=== PATIENT | female | born 1950 | race Caucasian/White ===

== ENCOUNTER 2016-10-20 17:17 | Inpatient (IN) | payer OTHER ==
[2016-10-20] MEDS ORDERED: ASPIRIN 81 MG CHEWABLE TABLETS PO ONE (17:28)
--- NOTE | 2016-10-20 17:29 | PDOC ---
History of Present Illness - General History Source: Patient Exam Limitations: No Limitations <Roddy Rivera - Last Filed: 10/20/16 19:26> <Joaquin Nolasco - Last Filed: 10/20/16 19:41> - General Chief Complaint: Chest Pain Stated Complaint: CHEST PAIN Time Seen by Provider: 10/20/16 17:25 - History of Present Illness Initial Comments: 10/20/16 19:25 The patient is a 66 year old female with a significant past medical history of MVR (St. Judes valve),lupe on dig and coumadin, tachy-rosalind syndrome s/p PM, vitiligo, "twisted colon", thromboembolic disease, constipation hernia repair, rectal bleeding, osteopenia, CHF, parathyroid disease who presents to the ED with chest pain after lunch. Patient complains the pain is burining in nature and radites up to her jaw. Pt felt mildly sob when this occured because she ' felt anxious' denie any diaphoresis, n/v, recent exertional sypmtoms. She denies any alleviating or worsening factors. Pt denies any obstructive cornary disease. She denies SOB, palpitations, tingling/weakness, back pain, fever/chills, cough , leg swelling. . She denies nausea, vomiting, diarrhea, constipation. (Roddy Rivera) Past History <Roddy Rivera - Last Filed: 10/20/16 19:26> - Past Medical History Cardiac Disorders: Yes (PACEMAKER, MITRAL VALVEN REPLACEMENT) Other medical history: SPLENIC INFARCTION - Surgical History Cardiac Surgery: Yes (PACEMAKER, MITRAL VALVE REPLACEMENT) Cholecystectomy: Yes - Psycho/Social/Smoking Cessation Hx Anxiety: No Suicidal Ideation: No Smoking History: Never smoked Have you smoked in the past 12 months: No Hx Alcohol Use: No Drug/Substance Use Hx: No Substance Use Type: None Hx Substance Use Treatment: No <Joaquin Nolasco - Last Filed: 10/20/16 19:41> - Past Medical History Allergies/Adverse Reactions: Allergies Allergy/AdvReac Type Severity Reaction Status Date / Time carvedilol [From Coreg] Allergy Verified 10/20/16 17:18 Home Medications: Ambulatory Orders Losartan Potassium [Cozaar] 25 mg PO DAILY 10/16/15 Metoprolol Succinate [Toprol Xl] 50 mg PO DAILY 10/16/15 Warfarin Sodium [Coumadin] 7.5 mg PO ASDIR 10/16/15 Aspirin Coated [Ecotrin -] 81 mg PO DAILY tablet.ec 10/17/15 Digoxin [Lanoxin -] 0.25 mg PO DAILY@2200 10/20/16 Docusate Sodium [Colace -] 100 mg PO DAILY PRN 10/20/16 Warfarin Sodium [Coumadin] 5 mg PO ASDIR 10/20/16 Review of Systems - Review of Systems Able to Perform ROS?: Yes <Roddy Rivera - Last Filed: 10/20/16 19:26> <Joaquin Nolasco - Last Filed: 10/20/16 19:41> - Review of Systems Comments:: 10/20/16 19:25 CONSTITUTIONAL: No reported: Fever, Chills, Diaphoresis, Generalized Weakness, Malaise, Loss of Appetite HEENT: No reported: Rhinorrhea, Nasal Congestion, Throat Pain, Throat Swelling, Difficulty Swallowing, Mouth Swelling, Ear Pain, Eye Pain, Visual Changes CARDIOVASCULAR: + chest pain. No reported: Syncope, Palpitations, Irregular Heart Rate, Lightheadedness, Peripheral Edema RESPIRATORY: No reported: Cough, Shortness of Breath, SOB with Exertion, Orthopnea, Wheezing , Stridor, Hemoptysis GASTROINTESTINAL: No reported: Abdominal pain, Abdominal Distension, Nausea, Vomiting, Diarrhea, Constipation, Melena, Hematochezia GENITOURINARY: No reported: Dysuria, Frequency, Urgency, Hesitancy, Flank Pain, Genital Pain MUSCULOSKELETAL: No reported: Myalgia, Arthralgia, Joint Swelling, Back pain, Neck Pain SKIN: No reported: Rash, Itching, Pallor HEMEATOLOGIC/IMMUNOLOGIC: No reported: Easy Bleeding, Easy Bruising, Lymphadenopathy, Frequent infections ENDOCRINE: No reported: Unexplained Weight Gain, Unexplained Weight Loss, Heat Intolerance , Cold Intolerance NEUROLOGIC: No reported: Headache, Focal Weakness, Paresthesias, Vertigo, Lightheadedness, Unsteady Gait, Seizure, Mental Status Changes, Incontinence PSYCHIATRIC: No reported: Anxiety, Depression (Roddy Rivera) *Physical Exam <Roddy Rivera - Last Filed: 10/20/16 19:26> <Joaquin Nolasco - Last Filed: 10/20/16 19:41> - Vital Signs Last Vital Signs Temp Pulse Resp BP Pulse Ox 97.7 F 76 21 126/74 98 10/20/16 17:18 10/20/16 17:43 10/20/16 17:43 10/20/16 17:43 10/20/16 17:43 - Physical Exam Comments: 10/20/16 19:25 GENERAL: The patient is awake, alert, and fully oriented, Nontoxic - in no acute distress. HEAD: Normocephalic, atraumatic. EYES: extraocular movements intact, sclera anicteric, conjunctiva clear. ENT: Normal voice, Moist mucous membranes. NECK: Normal range of motion, supple LUNGS: Breath sounds equal, clear to auscultation bilaterally. No wheezes, no rhonchi, no rales. HEART: Regular rate and rhythm, without murmur, rub or gallop. PM in chest ABDOMEN: Soft, nontender, normoactive bowel sounds. No guarding, no rebound.No CVA tenderness EXTREMITIES: Normal range of motion, no edema. No clubbing or cyanosis. No cords, erythema, or tenderness. NEUROLOGICAL: No facial assymetry, Normal speech, PSYCH: Normal mood, normal affect. SKIN: Warm, Dry, normal turgor. (Roddy Rivera) Heart Score/ECG Review <Roddy Rivera - Last Filed: 10/20/16 19:26> - History History: Moderately suspicious - Electrocardiogram EKG: Non specific repolarization disturbance - Age Age: >/= 65 - Risk Factors Based on the list above the patient has:: No risk factors known - Troponin Troponin: </= normal limit - Score Heart Score - Total: 4 <Joaquin Nolasco - Last Filed: 10/20/16 19:41> - ECG Impressions Comment:: 10/20/16 19:22 Twelve-lead EKG was performed and reviewed by me. Wide complex QURS nonspecific block no ST changes suggstive of acute ischemia repeat EKG at 19:09 shows ventricular pacing no ekg suggestive of acute ischemia va darnell criteria (Joaquin Nolasco) ED Treatment Course - LABORATORY CBC & Chemistry Diagram: 10/20/16 17:36 10/20/16 17:36 <Roddy Rviera - Last Filed: 10/20/16 19:26> - LABORATORY CBC & Chemistry Diagram: 10/20/16 17:36 10/20/16 17:36 <Joaquin Nolasco - Last Filed: 10/20/16 19:41> - ADDITIONAL ORDERS Additional order review: Laboratory Results 10/20/16 10/20/16 10/20/16 17:36 17:36 17:31 INR 1.99 H D Sodium 137 Potassium 3.6 Chloride 102 Carbon Dioxide 26 Anion Gap 9 BUN 19 H D Creatinine 1.0 D Creat Clearance w eGFR 55.14 Random Glucose 111 H D Calcium 9.9 Magnesium 2.1 Total Bilirubin 1.0 AST 22 D ALT 19 D Alkaline Phosphatase 67 D Creatine Kinase Cancelled 62 Troponin I Cancelled 0.10 Total Protein 6.9 Albumin 4.5 10/20/16 17:36 RBC 4.50 MCV 87.7 MCHC 34.3 RDW 13.5 MPV 8.1 Neutrophils % 58.9 Lymphocytes % 25.6 Monocytes % 9.3 Eosinophils % 4.6 H D Basophils % 1.6 - RADIOLOGY Radiology Studies Ordered: Category Date Time Status CHEST X-RAY PORTABLE* [RAD] Stat Radiology 10/20/16 17:35 Taken - Medications Given in the ED: ED Medications Discontinued Medications Generic Name Dose Route Start Last Admin Trade Name Freq PRN Reason Stop Dose Admin Aspirin 162 mg 10/20/16 17:28 10/20/16 17:36 Asa - PO 10/20/16 17:29 162 mg ONCE ONE Administration Medical Decision Making <Roddy Rivera - Last Filed: 10/20/16 19:26> <Joaquin Nolasco - Last Filed: 10/20/16 19:41> - Medical Decision Making 10/20/16 19:[address] De Oliveira (Logistics Lead) (Roddy Rivera) 10/20/16 19:09 66y F hx of mvr, afib on dig and coumadin, s/p pm, chf, presents with burning chest pain radiating to the jaw. on exam pt appears well in no acute distress. no exertional symptoms, exam unremarkable vitals normal suspect pt has gastritis vs pancreatitis consider ACS however her sypmtoms are highly atypical will obtain blood work will give pepcid/maalox, asa will reasesss will dw dr. De Oliveira 10/20/16 19:33 pt feeling improved discussed with dr. de oliveira recommended observation in tele will admit to hospitalist service A portion of this note was documented by scribe services under my direction. I have reviewed the details of the note, within reason, and agree with the documentation with the following case summary and management plan written by me 10/20/16 19:41 case dw [facility] with observation Case discussed in detail with admitting physician including history, physical exam and ancillary studies. Admitting physician has assumed care for the patient, will follow all pending diagnostics and will complete the evaluation and treatment. (Joaquin Nolasco) *DC/Admit/Observation/Transfer <Roddy Rivera - Last Filed: 10/20/16 19:26> - Discharge Dispostion Admit: Yes <Joaquin Nolasco - Last Filed: 10/20/16 19:41> Diagnosis at time of Disposition: Chest pain Qualifiers: Chest pain type: unspecified Qualified Code(s): R07.9 - Chest pain, unspecified - Discharge Dispostion Condition at time of disposition: Guarded - Attestations Scribe Attestion: 10/20/16 19:26 Documentation prepared by Roddy Rivera, acting as medical doctor for Joaquin Nolasco MD, . (Roddy Rivera)
[2016-10-20] MEDS ORDERED: ASPIRIN 81 MG CHEWABLE TABLETS ONE (17:32)
[2016-10-20 17:47] LABS: BASOPHIL 1.6 % (0-2.0); EOSINOPHIL 4.6 % (0-4.5); MCH 30.1 pg (25.7-33.7); MCHC 34.3 g/dl (32.0-36.0); MEAN CELL VOLUME 87.7 fl (80-96); MEAN PLT VOLUME 8.1 fl (7.5-11.1); NEUTROPHILS 58.9 % (42.8-82.8); PLATELET COUNT 176 K/MM3 (134-434); RDW 13.5 % (11.6-15.6); WHITE BLOOD COUNT 5.5 K/mm3 (4.0-10.8)
[2016-10-20 17:55] LABS: INR 1.99 (0.82-1.09)
[2016-10-20 18:00] LABS: ALBUMIN 4.5 g/dl (3.5-5.0); ALK PHOS 67 U/L (32-92); ANION GAP 9 (8-16); CALCIUM 9.9 mg/dl (8.4-10.2); CO2 26 mmol/L (22-28); GLUCOSE,RANDOM 111 mg/dl (74-106); MAGNESIUM 2.1 mg/dL (1.8-2.4); SGOT/AST 22 U/L (10-42); SGPT/ALT 19 U/L (10-40); TOT PROT 6.9 g/dl (6.4-8.3)
[2016-10-20 18:10] LABS: TROPONIN I (DFP) 0.1 ng/ml (0.03-0.50)
[2016-10-20 21:10] VITALS: BMI 23.1
--- NOTE | 2016-10-20 21:55 | HP ---
CHIEF COMPLAINT: Chest Pain PCP: Dr Juarez HISTORY OF PRESENT ILLNESS: This is a 66 y/o with significant medical history of Mitral Valve Repair (St Judes Valve), Afib (on Digoxin, Coumadin), Tachy-Emory Syndrome, s/p PM, CHF, Vitiligo, "twisted colon", Thromboembolic Disease, Splenic Infarction, Parathyroid Constipation, Rectal bleeding, Hernia Repair. Who presents to the ED with midsternal chest pressure/pain radiating to her jaw x 1400. Patient reports the pain as constant radiating across her chest. Patient reports diaphoresis, with nausea starting since arrival to the hospital. Patient denies fever, chills, cough, SOB, dizziness, palpations, AP, V/D, constipation, dysuria. Patient reports her last Echo 2016- LVEF 45% ER course was notable for: (1) Cardiac Enzymes neg x1 (2) EKG PM, inferior infarct, age undetermined, anterolateral infarct, age undetermined (3) Chest Xray image- no Infiltrate no effusion, report pending Recent Travel: None PAST MEDICAL HISTORY: See HPI PAST SURGICAL HISTORY: See HPI Social History: Smoking: Former 45 yrs ago Alcohol: None Drugs: Marijuana use - 70's (teenager) Lives alone, independent, not working Family History: Father Allergies carvedilol [From Coreg] Allergy (Verified 10/20/16 17:18) HOME MEDICATIONS: Home Medications Medication Instructions Recorded Losartan Potassium [Cozaar] 25 mg PO DAILY 10/16/15 Metoprolol Succinate [Toprol Xl] 50 mg PO DAILY 10/16/15 Warfarin Sodium [Coumadin] 7.5 mg PO ASDIR 10/16/15 Aspirin Coated [Ecotrin -] 81 mg PO DAILY tablet.ec 10/17/15 Digoxin [Lanoxin -] 0.25 mg PO DAILY@2200 10/20/16 Docusate Sodium [Colace -] 100 mg PO DAILY PRN 10/20/16 Warfarin Sodium [Coumadin] 5 mg PO ASDIR 10/20/16 REVIEW OF SYSTEMS CONSTITUTIONAL: diaphoresis, generalized weakness Absent: fever, chills, generalized weakness, malaise, loss of appetite, weight change HEENT: Absent: rhinorrhea, nasal congestion, throat pain, throat swelling, difficulty swallowing, mouth swelling, ear pain, eye pain, visual changes CARDIOVASCULAR: chest pain Absent: syncope, palpitations, irregular heart rate, lightheadedness, peripheral edema RESPIRATORY: Absent: cough, shortness of breath, dyspnea with exertion, orthopnea, wheezing, stridor, hemoptysis GASTROINTESTINAL: nausea Absent: abdominal pain, abdominal distension, vomiting, diarrhea, constipation, melena, hematochezia GENITOURINARY: Absent: dysuria, frequency, urgency, hesitancy, hematuria, flank pain, genital pain MUSCULOSKELETAL: Absent: myalgia, arthralgia, joint swelling, back pain, neck pain SKIN: Absent: rash, itching, pallor HEMATOLOGIC/IMMUNOLOGIC: Absent: easy bleeding, easy bruising, lymphadenopathy, frequent infections ENDOCRINE: Absent: unexplained weight gain, unexplained weight loss, heat intolerance, cold intolerance NEUROLOGIC: headache Absent: focal weakness or paresthesias, dizziness, unsteady gait, seizure, mental status changes, bladder or bowel incontinence PSYCHIATRIC: Absent: anxiety, depression, suicidal or homicidal ideation, hallucinations. PHYSICAL EXAMINATION GENERAL: Awake, alert, and fully oriented, in no acute distress. HEAD: Normal with no signs of trauma. EYES: Pupils equal, round and reactive to light, extraocular movements intact, sclera anicteric, conjunctiva clear. No lid lag. EARS, NOSE, THROAT: Ears normal, nares patent, oropharynx clear without exudates. Moist mucous membranes. NECK: Normal range of motion, supple without lymphadenopathy, JVD, or masses. LUNGS: Breath sounds equal, clear to auscultation bilaterally. No wheezes, and no crackles. No accessory muscle use. HEART: Irregular rate and rhythm, normal S1 and S2 without murmur, rub or gallop. Chest Pain non-reproducible ABDOMEN: Soft, nontender, not distended, normoactive bowel sounds, no guarding, no rebound, no masses. No hepatomegaly or splenomegaly. MUSCULOSKELETAL: Normal range of motion at all joints. No bony deformities or tenderness. No CVA tenderness. UPPER EXTREMITIES: 2+ pulses, warm, well-perfused. No cyanosis. No clubbing. No peripheral edema. LOWER EXTREMITIES: 2+ pulses, warm, well-perfused. No calf tenderness. No peripheral edema. NEUROLOGICAL: Cranial nerves II-XII intact. Normal speech. Normal gait. PSYCHIATRIC: Cooperative. Good eye contact. Appropriate mood and affect. SKIN: Warm, dry, normal turgor, no rashes or lesions noted, normal capillary refill. Laboratory Results - last 24 hr 10/20/16 10/20/16 10/20/16 17:31 17:36 17:36 WBC 5.5 D RBC 4.50 Hgb 13.6 D Hct 39.5 MCV 87.7 MCHC 34.3 RDW 13.5 Plt Count 176 D MPV 8.1 Neutrophils % 58.9 Lymphocytes % 25.6 Monocytes % 9.3 Eosinophils % 4.6 H D Basophils % 1.6 INR 1.99 H D Sodium Potassium Chloride Carbon Dioxide Anion Gap BUN Creatinine Creat Clearance w eGFR Random Glucose Calcium Magnesium Total Bilirubin AST ALT Alkaline Phosphatase Creatine Kinase 62 CK-MB (CK-2) Troponin I 0.10 Total Protein Albumin Lipase Digoxin 10/20/16 10/20/16 17:36 17:53 WBC RBC Hgb Hct MCV MCHC RDW Plt Count MPV Neutrophils % Lymphocytes % Monocytes % Eosinophils % Basophils % INR Sodium 137 Potassium 3.6 Chloride 102 Carbon Dioxide 26 Anion Gap 9 BUN 19 H D Creatinine 1.0 D Creat Clearance w eGFR 55.14 Random Glucose 111 H D Calcium 9.9 Magnesium 2.1 Total Bilirubin 1.0 AST 22 D ALT 19 D Alkaline Phosphatase 67 D Creatine Kinase Cancelled CK-MB (CK-2) Troponin I Cancelled Total Protein 6.9 Albumin 4.5 Lipase 77 H Digoxin 0.2561 L ASSESSMENT/PLAN: This is a 66 y/o female with a PMHx of: Mitral Valve Repair, s/p PM, Afib (on Digoxin, Coumadin), Tachy-Emory Syndrome, CHF, Thromboembolic Disease, Splenic Infarction, "Twisted Colon" Parathyroid, Hernia Repair. Placed in Tele Observation for Chest Pain r/o [place], Sub Therapuetic INR for further evaluation of their emergent condition. Plan: 1. Card: Chest Pain - r/o [place] vs Angina vs Atypical CP - Tele monitoring - HEART Score 4 - BOOKER Score 3 - Serial Enzymes - Appreciate Cardiology Consult - Echo in am - EKG reviewed - Chest xray reviewed - Monitor CBC, BMP - Asa given in ED - Continue home meds, tonight 2. Afib - Continue Digoxin, Warfarin 3. CHF - Stable - Will continue to monitor and treat with interventions, accordingly 4. Sub Therapuetic INR - Will start Coumadin 7.5mg tonight - Continue home meds - Ingram INRs 5. FEN - Tolerates Po Fluids - Replete lytes prn - Low Na Diet 6. DVT Prophylaxis - OOB - SCDs - Continue Coumadin Code Status: Full Code Problem List - Problem (1) Chest pain Code(s): R07.9 - CHEST PAIN, UNSPECIFIED Qualifiers: Chest pain type: unspecified Qualified Code(s): R07.9 - Chest pain, unspecified (2) Subtherapeutic international normalized ratio (INR) Code(s): R79.1 - ABNORMAL COAGULATION PROFILE (3) Splenic infarction Code(s): D73.5 - INFARCTION OF SPLEEN (4) Hx of mitral valve repair Code(s): Z98.890 - OTHER SPECIFIED POSTPROCEDURAL STATES (5) Afib Code(s): I48.91 - UNSPECIFIED ATRIAL FIBRILLATION (6) Status cardiac pacemaker Code(s): Z95.0 - PRESENCE OF CARDIAC PACEMAKER (7) CHF (congestive heart failure) Code(s): I50.9 - HEART FAILURE, UNSPECIFIED (8) DVT prophylaxis Code(s): VOB2579 - Visit type - Emergency Visit Emergency Visit: Yes ED Registration Date: 10/20/16 Care time: The patient presented to the Emergency Department on the above date and was hospitalized for further evaluation of their emergent condition. - New Patient This patient is new to me today: Yes Date on this admission: 10/20/16 - Critical Care Critical Care patient: No
[2016-10-20] MEDS ORDERED: DIGOXIN 0.125 MG TABLET (FP) PO SCH (22:00)
[2016-10-20] MEDS ORDERED: METOPROLOL SUCCINATE 50 MG TAB.SR.24H (FP) PO SCH (22:00)
[2016-10-20] MEDS ORDERED: DOCUSATE SODIUM 100 MG CAPSULE (FP) PO PRN (22:27)
[2016-10-20] MEDS ORDERED: WARFARIN NA 7.5 MG TABLET (FP) PO SCH (23:00)
[2016-10-20] MEDS ORDERED: NITROGLYCERIN SUBLINGUAL 1/150 0.4 MG TAB SL ONE (23:56)
[2016-10-21] MEDS ORDERED: NITROGLYCERIN SUBLINGUAL 1/150 0.4 MG TAB ONE (00:06)
[2016-10-21] MEDS ORDERED: CLOPIDOGREL BISULFATE 300 MG TABLET PO ONE (00:12)
[2016-10-21] MEDS ORDERED: HEPARIN NA (PORCINE) 5,000 UNITS/ML 1ML VIAL IVPUSH PRN ×2 (00:13)
[2016-10-21] MEDS ORDERED: HEPARIN INFUSION - 500 ML IVPB SCH (00:15)
[2016-10-21] MEDS ORDERED: NITROGLYCERIN SUBLINGUAL 1/150 0.4 MG TAB SL ONE (00:30)
--- NOTE | 2016-10-21 01:15 | HOSP ---
Subjective - Review of Symptoms Events since last encounter: Hospitalist Encounter Notified by the primary RN, that the patient's Jelani are elevated and the patient is having chest pain Ordered stat EKG, Plavix, Heparin Protocol, transfer to [facility] to Telemetry Instructed the primary RN to inform Dr. Beckwith of this mornings events. Per RN Dr. Beckwith requests the patient to be transferred to ICU. Will continue to monitor Cardiovascular: Yes: Chest Pain Physical Examination Vital Signs: Vital Signs Temperature 97.9 F 10/21/16 00:19 Pulse Rate 72 10/21/16 00:19 Respiratory Rate 17 10/21/16 00:19 Blood Pressure 126/76 10/21/16 00:19 O2 Sat by Pulse Oximetry (%) 99 10/20/16 22:15 Labs: Troponin, BNP 10/20/16 10/20/16 10/20/16 17:31 17:36 23:15 Troponin I 0.10 Cancelled 10.85 H* CBCD WBC 5.5 K/mm3 (4.0-10.8) D 10/20/16 17:36 RBC 4.50 M/mm3 (3.60-5.2) 10/20/16 17:36 Hgb 13.6 GM/dl (10.7-15.3) D 10/20/16 17:36 Hct 39.5 % (32.4-45.2) 10/20/16 17:36 MCV 87.7 fl (80-96) 10/20/16 17:36 MCHC 34.3 g/dl (32.0-36.0) 10/20/16 17:36 RDW 13.5 % (11.6-15.6) 10/20/16 17:36 Plt Count 176 K/MM3 (134-434) D 10/20/16 17:36 MPV 8.1 fl (7.5-11.1) 10/20/16 17:36 CMP Sodium 137 mmol/L (136-145) 10/20/16 17:36 Potassium 3.6 mmol/L (3.5-5.1) 10/20/16 17:36 Chloride 102 mmol/L (98-107) 10/20/16 17:36 Carbon Dioxide 26 mmol/L (22-28) 10/20/16 17:36 Anion Gap 9 (8-16) 10/20/16 17:36 BUN 19 mg/dl (7-18) H D 10/20/16 17:36 Creatinine 1.0 mg/dl (0.6-1.3) D 10/20/16 17:36 Creat Clearance w eGFR 55.14 (>60) 10/20/16 17:36 Calcium 9.9 mg/dl (8.4-10.2) 10/20/16 17:36 Total Bilirubin 1.0 mg/dl (0.2-1.0) 10/20/16 17:36 AST 22 U/L (10-42) D 10/20/16 17:36 ALT 19 U/L (10-40) D 10/20/16 17:36 Alkaline Phosphatase 67 U/L (32-92) D 10/20/16 17:36 Total Protein 6.9 g/dl (6.4-8.3) 10/20/16 17:36 Albumin 4.5 g/dl (3.5-5.0) 10/20/16 17:36 Current Medications Generic Name Dose Route Start Last Admin Trade Name Delfinoq PRN Reason Stop Dose Admin Aspirin 81 mg 10/21/16 10:00 Ecotrin - PO DAILY MATTEO Digoxin 0.25 mg 10/20/16 22:00 10/20/16 22:54 Lanoxin - PO 0.25 mg DAILY@2200 [facility] Administration Docusate Sodium 100 mg 10/20/16 22:27 Colace - PO DAILY PRN CONSTIPATION Heparin Sodium (Porcine) 1,000 unit 10/21/16 00:13 Heparin - IVPUSH PRN PRN Heparin Heparin Sodium (Porcine) 5,000 unit 10/21/16 00:13 Heparin - IVPUSH PRN PRN Heparin Heparin Sodium/Dextrose 500 mls @ 20 mls/hr 10/21/16 00:15 Heparin Infusion - IVPB TITR [facility] Protocol 1,000 UNITS/HR Losartan Potassium 25 mg 10/21/16 10:00 Cozaar - PO DAILY MATTEO Metoprolol Succinate 50 mg 10/20/16 22:00 10/20/16 22:54 Toprol Xl - PO 50 mg HS MATTEO Administration Critical Care Total Critical Care Time (in minutes): 35 Critical Care Statement: The care of this patient involved high complexity decision making to prevent further life threatening deterioration of the patient 's condition and/or to evalute & treat vital organ system(s) failure or risk of failure.
[2016-10-21] MEDS ORDERED: HEPARIN INFUSION - 500 ML IVPB ONE (04:35)
[2016-10-21] MEDS ORDERED: MAG HYDROX/AL HYDROX/SIMETH 30 ML UNIT-DOSE CUP PO PRN (05:06)
--- NOTE | 2016-10-21 05:30 | CONSULT ---
Consult Consult Specialty:: pulm/ critical care Referred by:: Bijal Donohue Reason for Consultation:: chest pain - History of Present Illness Chief Complaint: chest pain History of Present Illness: 66 y/o woman with significant cardiac history including MVR (St. Judes valve), Afib on digoxin and coumadin, tachy-rosalind syndrome s/p PPM, thromboembolic disease, vitiligo, twisted colon, constipation, rectal bleeding, osteopenia, CHF, parathyroid disease who presented to ED with midsternal chest pain/ pressure radiating to jaw. She noted some mild SOB when this occurred which she attributed to being anxious but denied recent exertional symptoms. She denied palpitations, tingling/ weakness, back pain, fever/ chills, cough, leg swelling , n/v, diarrehea, constipation, dysuria. She did endorse some diaphoresis with nausea which started since arriving to the hospital. Per pt her last TTE was in 2015 with EF 45%. VS in the ED were: T 97.7, HR 87, BP 150/90, RR 18, 02 100%. Initial cardiac enzymes were negative however subsequent trop was 10.8. She was loaded with plavix 300, ASA, given sublingual nitro x 2 and started on heparin gtt. Dr. Beckwith from cardiology was consulted. Pt was transferred to ICU with plan for possible transfer during the day for cardiac cath. Current Medications Al Hydroxide/Mg Hydroxide (Mylanta Oral Suspension -) 30 ml PO Q6H PRN PRN Reason: DYSPEPSIA Aspirin (Ecotrin -) 81 mg PO DAILY [facility] Digoxin (Lanoxin -) 0.25 mg PO DAILY@2200 [facility] Last Admin: 10/20/16 22:54 Dose: 0.25 mg Docusate Sodium (Colace -) 100 mg PO DAILY PRN PRN Reason: CONSTIPATION Heparin Sodium (Porcine) (Heparin -) 1,000 unit IVPUSH PRN PRN PRN Reason: Heparin Heparin Sodium (Porcine) (Heparin -) 5,000 unit IVPUSH PRN PRN PRN Reason: Heparin Heparin Sodium/Dextrose (Heparin Infusion -) 500 mls @ 20 mls/hr IVPB TITR MATTEO ; 1,000 UNITS/HR PRN Reason: Protocol Losartan Potassium (Cozaar -) 25 mg PO DAILY [facility] Metoprolol Succinate (Toprol Xl -) 50 mg PO HS [facility] Last Admin: 10/20/16 22:54 Dose: 50 mg - History Source History Provided By: Patient, Medical Record Limitations to Obtaining History: No Limitations - Past Medical History Cardio/Vascular: Yes: AFIB (chronic), CHF, Mitral Stenosis (MVR x2:1977, 1993 ( St. Flip mechanical mitral prosthesis, [facility]), Other (Sick sinus syndrome (w/ pacmeker, generator change 2005, generator change (Medtronic ) October 2012)) ...LMP Comment: 66 YEAR OLD ...: No Rheumatology: Yes: Other (Raynaud's syndrome) Endocrine: Yes: Hyperparathyroidism, Osteopenia - Past Surgical History Past Surgical History: Yes: Cholecystectomy, Hernia Repair (ventral), Valve Replacement (MVR x2:1977, 1993 (St. Flip mechanical mitral prosthesis, at [facility])) - Alcohol/Substance Use Hx Alcohol Use: No - Smoking History Smoking history: Never smoked Have you smoked in the past 12 months: No Home Medications - Allergies Allergies/Adverse Reactions: Allergies Allergy/AdvReac Type Severity Reaction Status Date / Time carvedilol [From Coreg] Allergy Verified 10/20/16 17:18 - Home Medications Home Medications: Ambulatory Orders Losartan Potassium [Cozaar] 25 mg PO DAILY 10/16/15 Metoprolol Succinate [Toprol Xl] 50 mg PO DAILY 10/16/15 Warfarin Sodium [Coumadin] 7.5 mg PO ASDIR 10/16/15 Aspirin Coated [Ecotrin -] 81 mg PO DAILY tablet.ec 10/17/15 Digoxin [Lanoxin -] 0.25 mg PO DAILY@2200 10/20/16 Docusate Sodium [Colace -] 100 mg PO DAILY PRN 10/20/16 Warfarin Sodium [Coumadin] 5 mg PO ASDIR 10/20/16 Family Disease History - Family Disease History Family Disease History: Other: Father (Hyperlipidemia), Mother (Hyperlipidemia) , Sister (Hyperlipidemia) Review of Systems - Review of Systems Constitutional: denies: Chills, Fever, Lethargy Cardiovascular: reports: Chest Pain. denies: Edema, Palpitations, Shortness of Breath Respiratory: denies: Cough, Exercise Intolerance, SOB, SOB on Exertion Physical Exam Vital Signs: Vital Signs Temperature 98.9 F 10/21/16 03:00 Pulse Rate 72 10/21/16 04:00 Respiratory Rate 17 10/21/16 04:00 Blood Pressure 130/87 10/21/16 04:00 O2 Sat by Pulse Oximetry (%) 99 10/20/16 22:15 Constitutional: Yes: No Distress, Anxious Eyes: Yes: WNL, PERRL HENT: Yes: WNL Neck: Yes: Supple Cardiovascular: Yes: Regular Rate and Rhythm, S1, S2 (subtle mechanical click). No: Murmur Respiratory: Yes: CTA Bilaterally Gastrointestinal: Yes: Normal Bowel Sounds. No: Distention, Tenderness Extremities: Yes: WNL Edema: No Peripheral Pulses WNL: Yes Integumentary: Yes: WNL Neurological: Yes: WNL, Cran Nerves II-XII Intact ...Motor Strength: WNL Labs: CBCD WBC 5.5 K/mm3 (4.0-10.8) D 10/20/16 17:36 RBC 4.50 M/mm3 (3.60-5.2) 10/20/16 17:36 Hgb 13.6 GM/dl (10.7-15.3) D 10/20/16 17:36 Hct 39.5 % (32.4-45.2) 10/20/16 17:36 MCV 87.7 fl (80-96) 10/20/16 17:36 MCHC 34.3 g/dl (32.0-36.0) 10/20/16 17:36 RDW 13.5 % (11.6-15.6) 10/20/16 17:36 Plt Count 176 K/MM3 (134-434) D 10/20/16 17:36 MPV 8.1 fl (7.5-11.1) 10/20/16 17:36 CMP Sodium 137 mmol/L (136-145) 10/20/16 17:36 Potassium 3.6 mmol/L (3.5-5.1) 10/20/16 17:36 Chloride 102 mmol/L (98-107) 10/20/16 17:36 Carbon Dioxide 26 mmol/L (22-28) 10/20/16 17:36 Anion Gap 9 (8-16) 10/20/16 17:36 BUN 19 mg/dl (7-18) H D 10/20/16 17:36 Creatinine 1.0 mg/dl (0.6-1.3) D 10/20/16 17:36 Creat Clearance w eGFR 55.14 (>60) 10/20/16 17:36 Calcium 9.9 mg/dl (8.4-10.2) 10/20/16 17:36 Total Bilirubin 1.0 mg/dl (0.2-1.0) 10/20/16 17:36 AST 22 U/L (10-42) D 10/20/16 17:36 ALT 19 U/L (10-40) D 10/20/16 17:36 Alkaline Phosphatase 67 U/L (32-92) D 10/20/16 17:36 Total Protein 6.9 g/dl (6.4-8.3) 10/20/16 17:36 Albumin 4.5 g/dl (3.5-5.0) 10/20/16 17:36 Troponin, BNP 10/20/16 10/20/16 10/20/16 17:31 17:36 23:15 Troponin I 0.10 Cancelled 10.85 H* Imaging - Results EKG: Report Reviewed Problem List - Problems (1) Afib Code(s): I48.91 - UNSPECIFIED ATRIAL FIBRILLATION (2) CHF (congestive heart failure) Code(s): I50.9 - HEART FAILURE, UNSPECIFIED (3) Chest pain Code(s): R07.9 - CHEST PAIN, UNSPECIFIED Qualifiers: Chest pain type: unspecified Qualified Code(s): R07.9 - Chest pain, unspecified (4) Hx of mitral valve repair Code(s): Z98.890 - OTHER SPECIFIED POSTPROCEDURAL STATES (5) Status cardiac pacemaker Code(s): Z95.0 - PRESENCE OF CARDIAC PACEMAKER (6) Splenic infarction Code(s): D73.5 - INFARCTION OF SPLEEN (7) NSTEMI (non-ST elevated myocardial infarction) Code(s): I21.4 - NON-ST ELEVATION (NSTEMI) MYOCARDIAL INFARCTION Assessment/Plan 66 y/o woman with cardiac history including mechanical MVR, Afib on digoxin and coumadin, tachy-rosalind s/p PPM, thromboembolic disease, CHF who presented to ED with radiating chest pain, trops up to 10, started on plavix, ASA, heparin and transferred to ICU for further monitoring. CV: h/o mechanical MVR, Afib on coumadin, tachy-rosalind syndrome s/p PPM, CHF who presented with NSTEMI -cardiology following -continue plavix, ASA, heparin -f/u PTT and adjust as needed -SL NTG PRN -trend trops -TTE -EKG -possible transfer for cath -hold home coumadin while on heparin gtt -continue digoxin, trend levels as needed Pulm: no active issues -O2 as needed Prophylaxis - SCDs -Heparin gtt -Pantoprazole - avoid Nexium while on plavix Code Status: Full Code Tiffany RUCKER CC Time: 35mins
[2016-10-21 06:54] LABS: BASOPHIL 0.9 % (0-2.0); EOSINOPHIL 4.4 % (0-4.5); MCH 29.7 pg (25.7-33.7); MCHC 33.7 g/dl (32.0-36.0); MEAN CELL VOLUME 88.2 fl (80-96); MEAN PLT VOLUME 8.8 fl (7.5-11.1); NEUTROPHILS 64.7 % (42.8-82.8); PLATELET COUNT 169 K/MM3 (134-434); RDW 14.2 % (11.6-15.6); WHITE BLOOD COUNT 5.6 K/mm3 (4.0-10.0)
--- NOTE | 2016-10-21 07:00 | CON.CARD ---
Consult Consult Specialty:: Cardiology Referred by:: Dr. Joaquin Nolasco Reason for Consultation:: LA - History of Present Illness Chief Complaint: Chest pain History of Present Illness: 66 yo female with MV replacement x2 (1977 & 1993, St. Flip mechanical valve at [facility]), atrial fibrillation (on coumadin), atrial fibrillation, Medtronic pacemaker (for SSS, last generator change 2012), and prior pulmonary embolism, who presented yesterday to [place] (then transferred to [facility]) with chest pain with radiation to her jaw which began ~ 2 PM with diaphoresis. ECG demonstrated ventricular paced rhythm. Initial troponin at 17: 31 was 0.10, which increased to 10.85 at 23:15. Patient was started on heparin gtt, load with Plavix. Currently reports some mild continued chest discomfort. INR 1.9 yesterday. - History Source History Provided By: Patient Limitations to Obtaining History: No Limitations - Past Medical History Cardio/Vascular: Yes: AFIB (chronic), CHF, Mitral Stenosis (MVR x2:1977, 1993 ( St. Flip mechanical mitral prosthesis, [facility])), Other (Sick sinus syndrome (initially implanted 2005, generator change (Medtronic) October 2012 )) Pulmonary: Yes: Pulmonary Embolus Gastrointestinal: Yes: Constipation, Other (Splenic infarct, colonic polyps) ...LMP Comment: 66 YEAR OLD ...: No Heme/Onc: Yes: Anemia Musculoskeletal: Yes: Osteoarthritis Rheumatology: Yes: Other (Raynaud's syndrome) Endocrine: Yes: Hyperparathyroidism, Osteopenia - Past Surgical History Past Surgical History: Yes: Cholecystectomy, Hernia Repair (ventral), Valve Replacement (MVR x2:1977, 1993 (St. Flip mechanical mitral prosthesis, at [facility])) - Alcohol/Substance Use Hx Alcohol Use: No History of Substance Use: reports: None - Smoking History Smoking history: Former smoker (Quit 1971) Have you smoked in the past 12 months: No Home Medications - Allergies Allergies/Adverse Reactions: Allergies Allergy/AdvReac Type Severity Reaction Status Date / Time carvedilol [From Coreg] Allergy Verified 10/20/16 17:18 - Home Medications Home Medications: Ambulatory Orders Losartan Potassium [Cozaar] 25 mg PO DAILY 10/16/15 Metoprolol Succinate [Toprol Xl] 50 mg PO DAILY 10/16/15 Warfarin Sodium [Coumadin] 7.5 mg PO ASDIR 10/16/15 Aspirin Coated [Ecotrin -] 81 mg PO DAILY tablet.ec 10/17/15 Digoxin [Lanoxin -] 0.25 mg PO DAILY@2200 10/20/16 Docusate Sodium [Colace -] 100 mg PO DAILY PRN 10/20/16 Warfarin Sodium [Coumadin] 5 mg PO ASDIR 10/20/16 Family Disease History - Family Disease History Family Disease History: Heart Disease: Father (Hyperlipidemia), Other: Father, Mother (Hyperlipidemia), Sister (Hyperlipidemia) Review of Systems - Review of Systems Constitutional: reports: No Symptoms Eyes: reports: No Symptoms HENT: reports: No Symptoms Neck: reports: No Symptoms Cardiovascular: reports: Chest Pain Respiratory: reports: No Symptoms Gastrointestinal: reports: No Symptoms Genitourinary: reports: No Symptoms Musculoskeletal: reports: No Symptoms Neurological: reports: No Symptoms Endocrine: reports: No Symptoms Psychiatric: reports: No Symptoms Vital Signs: Vital Signs Temperature 98.9 F 10/21/16 03:00 Pulse Rate 71 10/21/16 06:00 Respiratory Rate 20 10/21/16 06:00 Blood Pressure 130/90 10/21/16 06:00 O2 Sat by Pulse Oximetry (%) 99 10/20/16 22:15 Constitutional: Yes: Well Nourished, No Distress HENT: Yes: Atraumatic, Normocephalic Respiratory: Yes: CTA Bilaterally Gastrointestinal: Yes: Normal Bowel Sounds, Soft. No: Tenderness, Rebound Cardiovascular: Yes: Regular Rate and Rhythm JVD: No Carotid Bruit: No Heart Sounds: Yes: S1, S2, Clicks (Baxter metallic click in mitral position) - Other Data Labs, Other Data: INR, PTT INR 1.99 (0.82-1.09) H D 10/20/16 17:36 Troponin, BNP 10/20/16 23:15 Troponin I 10.85 H* Troponin, BNP 10/20/16 23:15 Troponin I 10.85 H* Echo: Report Reviewed (03/12/16: TDS. Normal LV size and low normal LVEF 50%. Severe LAE. Dialted RA. Pacer wire in RV. Mechanical MV prosthesis. Mod TR. Mild pulm HTN. Min IL.) Imaging - Results Chest X-ray: Image Reviewed (10/20/16: Cardiomegaly. No effusions or infiltrates. ) Assessment/Plan 66 yo female with MV replacement x2 (1977 & 1993, St[employer] Flip mechanical valve at [facility]), atrial fibrillation (on coumadin), atrial fibrillation, Medtronic pacemaker (for SSS, last generator change 2012), and prior history of pulmonary embolism. Admitted with chest pain which began ~ 2 PM yesterday. Patient ruled in for LA. ECG demonstrates ventricular paced rhythm. Initial troponin at 17:31 was 0.10, which increased to 10.85 at 23:15. Currently on heparin gtt, loaded with Plavix 300 mg po x1 yesterday. Currently reports some mild continued chest discomfort. INR 1.9 yesterday. RECS: Will apply 1" NTG paste Continue aspirin and Plavix 75 mg po daily Continue metoprolol succinate 50 mg po daily, losartan, and digoxin Coumadin on hold, INR 1.9 yesterday. Currently on heparin gtt (for both LA and mechanical MVR). Spoke with Dr. Syed Donnelly who will arrange transfer to [facility] for cardiac catheterization. Plan was discussed with patient who agrees to transfer.
[2016-10-21] MEDS ORDERED: NITROGLYCERIN 2% OINTMENT - 1GM PACKET TD ONE ×2 (07:10→07:26)
[2016-10-21 07:21] LABS: ANION GAP 7 (8-16); CALCIUM 9.1 mg/dL (8.5-10.1); CO2 29 mmol/L (21-32); CREATININE 0.9 mg/dL (0.55-1.02); GLUCOSE,RANDOM 103 mg/dL (74-106); MAGNESIUM 2.2 mg/dL (1.8-2.4); PHOSPHOROUS 2.8 mg/dL (2.5-4.9)
[2016-10-21] MEDS ORDERED: DOCUSATE SODIUM 100 MG CAPSULE (FP) PO PRN (07:34)
[2016-10-21 08:08] LABS: INR 2.28 (0.82-1.09); PROTHROMBIN TIME (PATIENT) 25.5 SEC (9.98-11.88)
[2016-10-21 08:55] LABS: TROPONIN I 22.7 ng/ml (0.00-0.05)
--- NOTE | 2016-10-21 09:06 | PN ---
Physical Exam: SUBJECTIVE: Patient seen and examined OBJECTIVE: Vital Signs Period Temp Pulse Resp BP Sys/[place] Pulse Ox Last 24 Hr 97.6 F-98.9 F 70-74 13-20 118-130/70-90 99 GENERAL: The patient is awake, alert, and fully oriented, in no acute distress. HEAD: Normal with no signs of trauma. EYES: PERRL, extraocular movements intact, sclera anicteric, conjunctiva clear. No ptosis. ENT: Ears normal, nares patent, oropharynx clear without exudates, moist mucous membranes. NECK: Trachea midline, full range of motion, supple. LUNGS: Breath sounds equal, clear to auscultation bilaterally, no wheezes, no crackles, no accessory muscle use. HEART: Regular rate and rhythm, S1, S2 without murmur, rub or gallop. ABDOMEN: Soft, nontender, nondistended, normoactive bowel sounds, no guarding, no rebound, no hepatosplenomegaly, no masses. EXTREMITIES: 2+ pulses, warm, well-perfused, no edema. NEUROLOGICAL: Cranial nerves II through XII grossly intact. Normal speech, gait not observed. PSYCH: Normal mood, normal affect. SKIN: Warm, dry, normal turgor, no rashes or lesions noted Laboratory Results - last 24 hr 10/20/16 10/21/16 10/21/16 23:15 03:00 05:20 WBC RBC Hgb Hct MCV MCHC RDW Plt Count MPV Neutrophils % Lymphocytes % Monocytes % Eosinophils % Basophils % INR PTT (Actin FS) 48.9 H Sodium Potassium Chloride Carbon Dioxide Anion Gap BUN Creatinine Random Glucose Calcium Phosphorus Magnesium Creatine Kinase Cancelled Cancelled CK-MB (CK-2) Cancelled Troponin I Cancelled Cancelled Triglycerides Cholesterol Total LDL Cholesterol HDL Cholesterol 10/21/16 10/21/16 10/21/16 05:20 05:20 07:39 WBC 5.6 RBC 4.26 Hgb 12.7 Hct 37.6 MCV 88.2 MCHC 33.7 RDW 14.2 Plt Count 169 MPV 8.8 Neutrophils % 64.7 Lymphocytes % 18.2 Monocytes % 11.8 H Eosinophils % 4.4 Basophils % 0.9 INR 2.28 H PTT (Actin FS) Sodium 143 Potassium 3.9 Chloride 107 Carbon Dioxide 29 Anion Gap 7 L BUN 13 Creatinine 0.9 Random Glucose 103 Calcium 9.1 Phosphorus 2.8 Magnesium 2.2 Creatine Kinase CK-MB (CK-2) Troponin I Triglycerides Cholesterol Total LDL Cholesterol HDL Cholesterol 10/21/16 08:00 WBC RBC Hgb Hct MCV MCHC RDW Plt Count MPV Neutrophils % Lymphocytes % Monocytes % Eosinophils % Basophils % INR PTT (Actin FS) Sodium Potassium Chloride Carbon Dioxide Anion Gap BUN Creatinine Random Glucose Calcium Phosphorus Magnesium Creatine Kinase 725 H CK-MB (CK-2) 84.573 H Troponin I 22.70 H* Triglycerides 49 Cholesterol 151 Total LDL Cholesterol 82 HDL Cholesterol 76 H Active Medications Generic Name Dose Route Start Last Admin Trade Name Freq PRN Reason Stop Dose Admin Al Hydroxide/Mg Hydroxide 30 ml 10/21/16 05:06 10/21/16 05:30 Mylanta Oral Suspension - PO 30 ml Q6H PRN Administration DYSPEPSIA Aspirin 81 mg 10/21/16 10:00 Ecotrin - PO DAILY [facility] Clopidogrel Bisulfate 75 mg 10/21/16 10:00 Plavix - PO DAILY [facility] Digoxin 0.25 mg 10/21/16 22:00 Lanoxin - PO DAILY@2200 [facility] Docusate Sodium 100 mg 10/21/16 07:34 Colace - PO DAILY PRN CONSTIPATION Heparin Sodium (Porcine) 1,000 unit 10/21/16 00:13 Heparin - IVPUSH PRN PRN Heparin Heparin Sodium (Porcine) 5,000 unit 10/21/16 00:13 Heparin - IVPUSH PRN PRN Heparin Heparin Sodium/Dextrose 500 mls @ 20 mls/hr 10/21/16 00:15 10/21/16 06:00 Heparin Infusion - IVPB 20 mls/hr TITR MATTEO Administration Protocol 1,000 UNITS/HR Losartan Potassium 25 mg 10/21/16 10:00 Cozaar - PO DAILY [facility] Metoprolol Succinate 50 mg 10/21/16 22:00 Toprol Xl - PO HS [facility] Pantoprazole Sodium 40 mg 10/21/16 10:00 Protonix Packets For Oral Suspension - PO DAILY [facility] ASSESSMENT/PLAN:
[2016-10-21] MEDS ORDERED: LOSARTAN POTASSIUM 25 MG TABLET PO SCH ×2 (10:00)
[2016-10-21] MEDS ORDERED: CLOPIDOGREL BISULFATE 75 MG TABLET (FP) PO SCH (10:00)
[2016-10-21] MEDS ORDERED: PANTOPRAZOLE SOD 40 MG SUSPENSION PACKET PO SCH (10:00)
[2016-10-21] MEDS ORDERED: LOSARTAN POTASSIUM 25 MG PO SCH ×2 (10:00)
[2016-10-21] MEDS ORDERED: ASPIRIN COATED 81 MG TABLET.EC PO SCH ×2 (10:00)
[2016-10-21 10:08] VITALS: BP 98/73; PULSE 70; TEMP 98.2
--- NOTE | 2016-10-21 10:11 | DS ---
Physical Exam: SUBJECTIVE: Patient seen and examined in ICU. She denies jaw pain, and chest burning currently. She does have residual chest pressure it is not referring. OBJECTIVE: Vital Signs Period Temp Pulse Resp BP Sys/[place] Pulse Ox Last 24 Hr 97.6 F-98.9 F 70-74 13-20 98-130/70-90 97-99 PE Neuro: alet, awake, cn 2-12intact Pulm: CTAB CV: s1 s2 rrr Abd: s nt nd + bs Ext: warm, no le edema Laboratory Results - last 24 hr 10/21/16 10/21/16 10/21/16 05:20 05:20 07:39 WBC 5.6 RBC 4.26 Hgb 12.7 Hct 37.6 MCV 88.2 MCHC 33.7 RDW 14.2 Plt Count 169 MPV 8.8 Neutrophils % 64.7 Lymphocytes % 18.2 Monocytes % 11.8 H Eosinophils % 4.4 Basophils % 0.9 INR 2.28 H PTT (Actin FS) Sodium 143 Potassium 3.9 Chloride 107 Carbon Dioxide 29 Anion Gap 7 L BUN 13 Creatinine 0.9 Random Glucose 103 Calcium 9.1 Phosphorus 2.8 Magnesium 2.2 Creatine Kinase CK-MB (CK-2) Troponin I Triglycerides Cholesterol Total LDL Cholesterol HDL Cholesterol 10/21/16 10/21/16 08:00 08:00 WBC RBC Hgb Hct MCV MCHC RDW Plt Count MPV Neutrophils % Lymphocytes % Monocytes % Eosinophils % Basophils % INR PTT (Actin FS) Sodium Potassium Chloride Carbon Dioxide Anion Gap BUN Creatinine Random Glucose Calcium Phosphorus Magnesium Creatine Kinase 725 H CK-MB (CK-2) 84.573 H Cancelled Troponin I 22.70 H* Triglycerides 49 Cholesterol 151 Total LDL Cholesterol 82 HDL Cholesterol 76 H HOSPITAL COURSE: Date of Admission:10/20/16 Date of Discharge: 10/21/16 Minutes to complete discharge: 36 Discharge Summary Reason For Visit: CHEST PAIN Current Active Problems Afib (Acute) CHF (congestive heart failure) (Acute) Chest pain (Acute) DVT prophylaxis (Acute) Hx of mitral valve repair (Acute) NSTEMI (non-ST elevated myocardial infarction) (Acute) Status cardiac pacemaker (Acute) Subtherapeutic international normalized ratio (INR) (Acute) Hospital Course: Initial Hospital Course: Briefly, this 66 y/o with significant medical history of, rheumatic fever, Mitral Valve Repair (St Judes Valve, mechanical) , Afib (on Digoxin, Coumadin), Tachy-[place] Syndrome, s/p PM, CHF, "twisted colon", Thromboembolic Disease, Splenic Infarction, Parathyroid Constipation, Rectal bleeding, Hernia Repair presented to the ED with midsternal chest pressure/pain radiating to her jaw. The pain was constant and radiating across her chest. Patient reported diaphoresis, with nausea starting since arrival to the hospital. Patient reported her last Echo 2015- LVEF 45%. last generator change 2012 (medtronic) Subsequent Hospital Course/Transfer Summary: 1. STEMI Patient was transferred from [place] to [place], initial troponin at 17: 31 was 0.10, which increased to 10.85 at 23:15. Heparin gtt on going Plavix load 300mg x1 Continue aspirin and Plavix 75 mg po daily Continue metoprolol succinate 50 mg po daily, losartan, and digoxin Dr. Syed Donnelly to [facility] for cardiac catheterization. Dispo: - Transfer to [facility], pt aware and agrees to above plan Condition: Guarded - Instructions Diet, Activity, Other Instructions: Transfer to [facility] for Cardiac Cath Disposition: TRANSFER ACUTE CARE/OTHER HOSP - Home Medications Comprehensive Discharge Medication List: Ambulatory Orders Losartan Potassium [Cozaar] 25 mg PO DAILY 10/16/15 Metoprolol Succinate [Toprol Xl] 50 mg PO DAILY 10/16/15 Warfarin Sodium [Coumadin] 7.5 mg PO ASDIR 10/16/15 Aspirin Coated [Ecotrin -] 81 mg PO DAILY tablet.ec 10/17/15 Digoxin [Lanoxin -] 0.25 mg PO DAILY@2200 10/20/16 Docusate Sodium [Colace -] 100 mg PO DAILY PRN 10/20/16 Warfarin Sodium [Coumadin] 5 mg PO ASDIR 10/20/16 This patient is new to me today: Yes Date on this admission: 10/25/16 Emergency Visit: Yes ED Registration Date: 10/20/16 Care time: The patient presented to the Emergency Department on the above date and was hospitalized for further evaluation of their emergent condition. Critical Care patient: No - Discharge Referral Referred to [facility] No
--- NOTE | 2016-10-21 11:38 | EKG ---
Test Reason : Blood Pressure : / mmHG Vent. Rate : 087 BPM Atrial Rate : 202 BPM P-R Int : 000 ms QRS Dur : 156 ms QT Int : 440 ms P-R-T Axes : 000 -77 097 degrees QTc Int : 529 ms WIDE QRS RHYTHM WITH PREMATURE VENTRICULAR COMPLEXES OR FUSION COMPLEXES LEFT AXIS DEVIATION NON-SPECIFIC INTRA-VENTRICULAR CONDUCTION BLOCK CANNOT RULE OUT INFERIOR INFARCT , AGE UNDETERMINED CANNOT RULE OUT ANTEROLATERAL INFARCT , AGE UNDETERMINED ABNORMAL ECG NO PREVIOUS ECGS AVAILABLE Confirmed by MARCI WALLIS MD ([id number]) on 10/21/2016 11:38:17 AM Referred By: PABLO Confirmed By:MARCI WALLIS MD
--- NOTE | 2016-10-21 11:42 | EKG ---
Test Reason : Blood Pressure : / mmHG Vent. Rate : 070 BPM Atrial Rate : 068 BPM P-R Int : 000 ms QRS Dur : 184 ms QT Int : 456 ms P-R-T Axes : 000 020 151 degrees QTc Int : 492 ms Ventricular-paced rhythm ABNORMAL ECG NO PREVIOUS ECGS AVAILABLE Confirmed by MARCI WALLIS MD ([id number]) on 10/21/2016 11:42:03 AM Referred By: RACHELE Confirmed By:MARCI WALLIS MD
[2016-10-21] MEDS ORDERED: WARFARIN NA 5 MG TABLET (UD) PO SCH (18:00)
[2016-10-21] MEDS ORDERED: DIGOXIN 0.25 MG TABLET (FP) PO SCH (22:00)
[2016-10-21] MEDS ORDERED: METOPROLOL SUCCINATE 50 MG TAB.SR.24H (FP) PO SCH (22:00)
--- NOTE | 2016-10-23 11:18 | EKG ---
Test Reason : Blood Pressure : / mmHG Vent. Rate : 071 BPM Atrial Rate : 086 BPM P-R Int : 000 ms QRS Dur : 182 ms QT Int : 482 ms P-R-T Axes : 000 043 173 degrees QTc Int : 523 ms Ventricular-paced rhythm ABNORMAL ECG WHEN COMPARED WITH ECG OF 20-OCT-2016 19:09, NO SIGNIFICANT CHANGE WAS FOUND Confirmed by JOSE R LAO MD ([id number]) on 10/23/2016 11:18:06 AM Referred By: Confirmed By:JOSE R LAO MD
== END 2016-10-21 10:40 | disposition short-term general hospital (02) | DRG 282 ==
LOC: FER 17:17 → FM/S 20:11 → OBSVTOIN 23:58 → JICU 10-21 04:10
PROVIDERS: ADMIT Internal Medicine; ATTEND Nurse Practitioner Acute Care
DX: I21.4 Non-ST elevation (NSTEMI) myocardial infarction (principal); I48.91 Unspecified atrial fibrillation; Z95.0 Presence of cardiac pacemaker; R79.1 Abnormal coagulation profile; R07.9 Chest pain, unspecified
CPT/HCPCS: 36415; 71010-TC; 80048; 80053; 80061; 80162; 82550; 82553; 83690; 83721; 83735; 84100; 84484; 85025; 85610; 85730; 93005; 93010; 99283-25; G0378; J1644

== ENCOUNTER 2023-11-09 08:05 | Day surgery (SDC) | payer OTHER ==
[2023-11-04 15:13] VITALS: BMI 22.2
[2023-11-09 09:42] VITALS: RESP 18
[2023-11-09 10:08] VITALS: TEMP 97.4
[2023-11-09 11:29] VITALS: BP 94/67; PULSE 80
== END 2023-11-09 11:00 | disposition home or self-care (01) ==
LOC: FASU-ENDO 08:05
PROVIDERS: ATTEND Internal Medicine Gastroenterology
PROC: 0DBL8ZX Excision of Transverse Colon, Via Natural or Artificial Opening Endoscopic, Diagnostic (ICD-10-PCS; principal; 2023-11-09 09:00)
DX: Z12.11 Encounter for screening for malignant neoplasm of colon (principal); D12.3 Benign neoplasm of transverse colon; K57.30 Diverticulosis of large intestine without perforation or abscess without bleeding; K64.8 Other hemorrhoids
CPT/HCPCS: 88305-TC